=== PATIENT | female | born 1955 | race African-American/Black ===

== ENCOUNTER → 2019-12-31 | Outpatient (CLI) | payer OTHER | LOC: NUC 08:06 | PROVIDERS: ATTEND Neuromusculoskeletal Medicine & OMM | DX: R14.0 Abdominal distension (gaseous) (principal); R10.9 Unspecified abdominal pain ==

== ENCOUNTER → 2020-02-17 | Outpatient (CLI) | payer OTHER | LOC: ULTRA 07:26 | PROVIDERS: ATTEND Obstetrics & Gynecology | DX: K80.20 Calculus of gallbladder without cholecystitis without obstruction (principal); D25.9 Leiomyoma of uterus, unspecified; N85.8 Other specified noninflammatory disorders of uterus; K76.0 Fatty (change of) liver, not elsewhere classified ==

== ENCOUNTER → 2020-04-07 | Outpatient (CLI) | payer OTHER ==
[~2020-04-07] MED LIST: BENICAR40 MG PO; HYDROCHLOROTHIA25 M2 PO; KLOR-CON 10 ER10 MEQ PO; LIPITOR 20 MG T20 M1 PO; TOPROL XL50 MG PO
== END ==
LOC: LAB 08:51
PROVIDERS: ATTEND Surgery
DX: Z01.812 Encounter for preprocedural laboratory examination (principal); Z20.828 Contact with and (suspected) exposure to other viral communicable diseases

== ENCOUNTER 2020-04-12 10:02 | Observation (INO) | payer OTHER ==
[~2020-04-12] VITALS: Ht 149.9 cm; Wt 98.9 kg
--- NOTE | ~2020-04-12 | H ---
[facility] [place] [address] HISTORY AND PHYSICAL Name: DIMAS MCDANIEL Room #: PRE [facility] M.R.#: [id number] Admission: Attend Phys: Cricket Valdez MD Discharge: Date of : 57 Report #: [id number] THIS REPORT FOR: cc: Clint Veloz,Cricket Lim MD ~ CC: Cricket Veloz MD PREOPERATIVE DIAGNOSES: 1. Cholecystitis with cholelithiasis. 2. Right lower quadrant pain, possible adhesions. HISTORY OF PRESENT ILLNESS: The patient is a 64-year-old who was seen back in January for complaint of distress from being very gassy over the last couple of years. The patient also has bloating. She says that the bloating is mostly in the lower part of her abdomen. She has history of nausea, no vomiting. She has had loose stools more than usual. The patient does complain of pain in the right side of her back for about a year. She has some left shoulder pain. No right shoulder pain. The patient does have some right upper quadrant pain that comes and goes. Initially, her complaint to me was gas. The patient does have food intolerance to dairy product, vegetables and fruits. Issues with greasy fried fish and also eggs. The patient had a CT scan that was unremarkable. The patient was seen by a structural steel erector. I did do an ultrasound since she did not have one when I saw her and it did show multiple small gallstones. The patient did have PIPIDA scan with ejection fraction of 75%. She did have moderate abdominal pain with the CCK injection. No family history of gallbladder disease that she is aware of. The patient has seen a MANAGER ANALYTICAL and I spoke with Dr. Gloria Arteaga who thinks that her pain is probably from adhesions. She does have uterine fibroid. She has requested I look at the pelvis and possibly lyse the adhesions. PAST MEDICAL HISTORY: She has mild high blood pressure. The patient denies diabetes, denies heart disease, denies lung disease, denies liver disease, denies kidney disease, denies bleeding disorder, denies history of blood clot. MEDICATIONS: The patient is on blood pressure meds. ALLERGIES: She is allergic to PENICILLIN. FAMILY HISTORY: Sister with breast cancer. SOCIAL HISTORY: The patient works in [employer]. Does not smoke. Drinks one cup a week. 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 She has [facility] [address] [place] [address] HISTORY AND PHYSICAL Name: DIMAS MCDANIEL MAGALY Room #: [facility]..#: [id number] Admission: Attend Phys: Cricket Valdez MD Discharge: Date of : 57 Report #: [id number] weakness in her arm. No chest pain, shortness of breath or palpitation. PHYSICAL EXAMINATION: GENERAL: The patient is a well-nourished female in no acute distress. HEENT: Pupils react to light. Extraocular muscles are intact. Sclerae are nonicteric. Oropharynx is clear. NECK: Soft and supple, no masses. LUNGS: Clear to auscultation. HEART: Regular rate and rhythm. No murmur or gallop. ABDOMEN: Soft with no tenderness. She is moderately obese. No mass, guarding, rigidity, rebound, no ascites. EXTREMITIES: No cyanosis, clubbing or edema. NEUROLOGIC: The patient's motor exam and sensory exams are unremarkable. IMPRESSION AND PLAN: The patient with couple of years history of gas, bloating, some right upper quadrant abdominal pain also. The patient does have gallstone seen on ultrasound. The patient's symptoms are consistent with gallbladder disease. She is recommended to have her gallbladder removed. The patient wishes to proceed. Laparoscopic cholecystectomy was discussed in detail. I did speak with her MANAGER ANALYTICAL physician who recommends looking at her pelvis during the gallbladder surgery. Possibly lyse the adhesions. By: 23 39 Cricket Valdez MD /nt
--- NOTE | ~2020-04-12 | O ---
[facility] [place] [address] OPERATIVE REPORT Name: DIMAS MCDANIEL Room #: 441-P [facility]..#: [id number] Admission: 04/12/20 Attend Phys: Cricket Valdez MD Discharge: Date of : 57 Report #: [id number] THIS REPORT FOR: cc: Clint Veloz,Cricket Lim MD ~ CC: Cricket Veloz MD DATE OF SERVICE: 04/12/2020 PREOPERATIVE DIAGNOSES: 1. Cholecystitis with cholelithiasis. 2. Right lower abdominal pain, possible adhesions. POSTOPERATIVE DIAGNOSES: 1. Cholecystitis with cholesterolosis. 2. Right lower quadrant pain. No adhesion identified. PROCEDURES PERFORMED: 1. Laparoscopic cholecystectomy. 2. Diagnostic laparoscopy. 3. Examination of the pelvis, right lower quadrant. SURGEON: Cricket Valdez MD ANESTHESIA: General anesthesia. COMPLICATIONS: None. ESTIMATED BLOOD LOSS: 5 mL. PROCEDURE NOTE: With the patient under general anesthesia, the abdomen was prepped and draped in sterile fashion. Timeout was performed. A 0.25% Marcaine was used to anesthetize the skin. Small 2 cm curved incision was made infraumbilically. Fascia was identified. Fascia was grasped with hemostat. Fascia was then opened under visualization. Between clamps, 0 Vicryl suture placed on the fascia edges. Veress needle was then placed through the peritoneum. Abdominal cavity was insufflated with CO2. After creating pneumoperitoneum, 11 mm trocar was placed under visualization into pneumoperitoneum. The patient has had some right lower quadrant pain and Dr. Arteaga from INJECTION MACHINE OPERATOR thought this is probably related to her appendectomy and adhesions. She asked me to evaluate the right lower quadrant and look at the ovaries and tubes. The patient was placed in Trendelenburg position, the right side was tilted up. A 5 mm trocar was placed about 2 inches below the [address] [address] OPERATIVE REPORT Name: DIMAS MCDANIEL [facility] Room #: [address] [place] [address].#: [id number] Admission: 04/12/20 Attend Phys: Cricket Valdez MD Discharge: Date of : 57 Report #: [id number] umbilicus. Using this trocar and then a second 5 mm trocar placed below the umbilicus at level of the midline, the pelvis was examined. At the site of the appendectomy, there is no adhesion to the wall. The bowel is not adhesed. Terminal ileum was normal. The rest of the ileum that is seen is normal. The cecum was normal. The patient's tube and ovaries were normal and normal ovary. No evidence of any endometriosis. The patient did have a large right uterine fibroid, which is displacing the rest of the uterus to the left. The diagnostic laparoscopic evaluation of the pelvis and right lower quadrant was finished at this point. Attention was then placed to the gallbladder. A 5 mm trocar was placed in the lateral pelvis and then another 5 mm trocar was placed in right epigastrium. Fundus of the gallbladder was lifted cephalad. The gallbladder was fairly decompressed. A second trocar was placed in the proximal part of the gallbladder. There is some adhesion medially. This was fairly mild and was taken down easily. The peritoneum over the cystic duct was then dissected free. The cystic duct was isolated. The junction of the cystic duct to the gallbladder was visualized. A clip was placed here. Opening was made in the cystic duct for the cholangiogram. The cholangiogram catheter was placed. Under fluoroscopy, the common bile duct filled out well. No definite filling defects identified. Dye flowed readily in duodenum. The common duct also was normal size. The cholangiogram catheter was then removed. The proximal cystic duct was then clipped x 2 and divided. The cystic artery was identified adjacent to this area. This was isolated, clipped x 2 proximally and distally and then divided. Gallbladder was then freed from the liver bed without difficulty. The gallbladder once it was free, it was retrieved through the infraumbilical port. The gallbladder was opened off the field at the end of the case and I did not see any stone, but there was significant degree of cholesterolosis identified. Some of the cholesterol material may have been big enough that the ultrasound identified small stones. Irrigation was performed. Clips intact. Irrigation was aspirated. Trocars removed. CO2 was evacuated. Infraumbilical fascia defect was closed with [id number] 0 Vicryl x 2. Skin was closed with 5-0 PDS. Steri-Strips applied. Band-Aids applied. The patient tolerated the procedure well and was taken to recovery room. By: 29 2245 Cricket Valdez MD /kerry
[2020-04-12 11:42] VITALS: BP 150/87
[2020-04-12 11:53] LABS: CALCIUM 8.7 mg/dL (8.5-10.1); POTASSIUM 3.6 mmol/L (3.5-5.1)
--- NOTE | 2020-04-12 12:45 | EKG ---
[facility] [place] [address] ELECTROCARDIOGRAM REPORT Name: DIMAS MCDANIEL Room #: [address] [place] [address]..#: [id number] Admission: 04/12/20 Attend Phys: Cricket Valdez MD Discharge: Date of : 57 Report #: [id number] THIS REPORT FOR: cc: Clint Veloz Steven F. DO Lundgren, Craig H. MD [facility] THIS REPORT FOR: //name// [facility] Test Date: 2020-04-12 Test Time: 10:58:13 Pat Name: DIMAS MCDANIEL Department: Room: 150 Gender: F Desktop Support Associate: [place] : 1955 Requested By: Cricket Valdez Order Number: [id number] MD: Deep Husain Measurements Intervals [place] Rate: 61 P: 48 MS: 187 QRS: 7 QRSD: 98 T: 4 QT: 400 QTc: 403 Interpretive Statements Sinus rhythm Nonspecific T wave abnormalities No previous ECG available for comparison Electronically Signed On 04-12-2020 12:45:34 CDT by Deep Husain [email or web address] <ELECTRONICALLY SIGNED> By: Deep Husain MD, [facility] 04/12/20 1245 1058 1058 Deep Husain MD, [facility] /EPI
[2020-04-12 16:00] VITALS: BP 163/97
[2020-04-12 18:14] VITALS: BP 156/77
--- NOTE | 2020-04-12 18:40 | NUR ---
PATIENT ADMITTED FROM OR WITH LAPROSCOPIC CARSON, PATIENT HAS 4 BANDIADS TO ABDOMEN AREA. PATIENT VOMITED SOON SHE ARRIVED ON THE UNIT. ZOFRAN 4 MG IV GIVEN. PATIENT ON CLEAR LIQUIDS, ONLY ABLE TO TOLERATE ICE CHIPS. B/P ELEVATED POST OP AND WHEN SHE ARRIVED ON THE FLOOR. THIS RN PAGED DR MCKEON, NO RETUNR CALL, HE CAME WHEN I LEFT THE FLOOR FOR LUNCH. THIS RN PAGED DR MCKEON AGAIN ABOUT THE B/P, HE WAS UNAWARE OF HER HOME MEDS, STATED TO RESTART ALL HOME MEDS, AND ALSO INFORMED DR MCKEON OF PATIENT CONTINUE TO HAVE NAUSEA, ORDER FOR REGLAN IN COMPUTER, HE ASKED THIS RN TO ORDER COMPAZINE 10 MG IV Q6HRS/PRN. RIGHT AC IV IN PLACE, IV FLUIDS STARTED AT 80CC/HR. ADMISSION COMPLETED AND REPORT GIVEN TO MAXINE/MAXIMUS.
[2020-04-13 00:01] VITALS: BP 168/90
--- NOTE | 2020-04-13 02:22 | NUR ---
PT CARE ASSUMED WITH PT IN BED WATCHING TV.PT IS A/O X4.PT IS UP WITH X1 ASSIST TO BEDSIDE COMMODE.PT DENIED NAUSEA DURING SHIFT AND NO VOMITING.HOME MEDICATION STARTED.PT IS ON 3L OF O2 AND DOESNOT USE O2 AT HOME.PT HAD APPLE SAUCE WITH NO ISSUES.PT DIET IS ADVANCED TOLERATED.PT CALLS FOR HELP APPROPRIETELY.WILL CONTINUE TO MONITOR POC
[2020-04-13 09:30] VITALS: BP 147/81
--- NOTE | 2020-04-13 14:11 | NUR ---
PT IS A&OX4, VSS, AMBULATES WELL WITH SBA JUST FOR SUPPORT, INCISIONS ARE DRY AND INTACT. PT DIET IS ADVANCED TOLERATED. PT DENIES NAUSEA, AND PAIN IS CONTROLLED. WILL CONTINUE TO MONITOR.
[2020-04-13] MEDS ORDERED: LORCET 5-325 M1 EACH PO (14:22)
[2020-04-13 15:19] VITALS: BP 168/90
--- NOTE | 2020-04-13 16:26 | NUR ---
Pt dcing home today. No needs from cm other than a cab voucher as the pt's spouse is not able to come pick her up until late tonight. Voucher provided to facilitate dc.
--- NOTE | 2020-04-13 17:23 | NUR ---
I AGREE WITH NURSING ASSESSMENT AND NURSING NOTE DONE PONTRILLA/DRAW FRAME TENDER.
--- NOTE | 2020-04-14 15:07 | PATH ---
[facility] [address] [place] [address] PATHOLOGY RPT PROCEDURE Name: MARIBEL RODRIGUES MAGALY Room #: 441-P KADEEM Ashley#: [id number] Admission: 04/12/20 Date of : 57 Discharge: 04/13/20 Report #: [id number] Path Case #: [id number] [facility] Accession Number: [id number] . 01 Material submitted: . gallbladder - GALLBLADDER . 01 Clinical history: . CHOLECYSTITIS W/ CHOLELIATHIASIS . 02 Diagnosis: Gallbladder, cholecystectomy: - Mild chronic cholecystitis. - No calculi received with the specimen (specimen received previously opened). (IUV:police manager; 04/14/2020) MBR 04/14/2020 1106 Local . 02 Electronically signed: . Emily Miller MD, Pathologist NPI- [id number] . 01 Gross description: . The specimen is received in formalin labeled "Maribel Rodrigues, gallbladder" and consists of a previously opened yellow-green gallbladder measuring 7.0 x 3.3 x 0.9 cm. The margin is inked black. No calculi are identified within the gallbladder lumen or in the container. The mucosa is green-brown with an average wall thickness of 0.1 cm. No masses are identified. Senior Applications Engineer sections are submitted in A1. (SDY; 04/13/2020) SYU/SYU 04/13/2020 1126 Local . 02 Pathologist provided ICD-10: K81.1 . 02 CPT . 197851 Specimen Comment: A courtesy copy of this report has been sent to [phone], [phone] Specimen Comment: [id number] Specimen Comment: Report sent to / DR MCNULTY Performed at: [address] [id number] MD Gm Davey MD Phone: [phone] Performed at: [address] [address] PATHOLOGY RPT PROCEDURE Name: MARIBEL RODRIGUES MAGALY Room #: 441-P KADEEM Ashley#: [id number] Admission: 04/12/20 Date of : 57 Discharge: 04/13/20 Report #: [id number] Path Case #: [id number] [address] [place] [address] [place] [id number] MD Emily Miller MD Phone: [phone]
== END 2020-04-13 18:23 | disposition home or self-care (01) ==
LOC: OR 10:02 → TBA 10:03 → OR 11:23 → 4S 15:15 → OR 15:16 → 4S 15:16
PROVIDERS: ADMIT Surgery; ATTEND Surgery
DX: K80.10 Calculus of gallbladder with chronic cholecystitis without obstruction (principal); R14.0 Abdominal distension (gaseous); I10 Essential (primary) hypertension; Z79.899 Other long term (current) drug therapy
CPT/HCPCS: 50010; 50101; 50411; 50555; 50558; 51489; 52265; 53307; 53310; 55245; 55317; 56462; 56526; 62110; 62900; 70005

== ENCOUNTER → 2020-12-21 | Outpatient (CLI) | payer OTHER ==
[~2020-12-21] MED LIST changes: +LORCET 5-325 M1 EACH PO
== END ==
LOC: RAD 08:54
PROVIDERS: ATTEND Surgery Plastic and Reconstructive Surgery
DX: Z12.31 Encounter for screening mammogram for malignant neoplasm of breast (principal)

== ENCOUNTER 2020-12-30 13:38 | Emergency (ER) | payer OTHER ==
[~2020-12-30] VITALS: Ht 149.9 cm; Wt 95.3 kg
[2020-12-30] MEDS ORDERED: ULTRAM 50MG TAB50 MG PO (17:10)
[2020-12-30 17:31] VITALS: BP 154/70
[2021-01-03] MEDS ORDERED: VITAMIN D31250 MCG PO (11:50)
== END 2020-12-30 17:33 | disposition home or self-care (01) ==
LOC: ER 13:38
DX: M25.571 Pain in right ankle and joints of right foot (principal); I10 Essential (primary) hypertension; E78.00 Pure hypercholesterolemia, unspecified; J45.909 Unspecified asthma, uncomplicated; K21.9 Gastro-esophageal reflux disease without esophagitis; Z88.5 Allergy status to narcotic agent; Z88.0 Allergy status to penicillin; Z79.899 Other long term (current) drug therapy; Z90.49 Acquired absence of other specified parts of digestive tract; W10.8XXA Fall (on) (from) other stairs and steps, initial encounter; Y93.89 Activity, other specified; Y92.89 Other specified places as the place of occurrence of the external cause; Y99.9 Unspecified external cause status

== ENCOUNTER 2021-01-04 09:25 | Day surgery (SDC) | payer OTHER ==
[~2021-01-04] VITALS: Ht 149.9 cm; Wt 97.5 kg
[~2021-01-04 09:25] MED LIST changes: +ULTRAM 50MG TAB50 MG PO; +VITAMIN D31250 MCG PO
[2021-01-04] MEDS ORDERED: PERCOCET 7.5-31 EAC1 PO (12:28)
[2021-01-04 14:33] VITALS: BP 136/84
--- NOTE | 2021-01-05 08:23 | EKG ---
[address] [employer] [address] ELECTROCARDIOGRAM REPORT Name: DIMAS MCDANIEL MAGALY Room #: DEP [facility]#: [id number] Admission: 01/04/21 Attend Phys: Saurav Plasencia MD Discharge: 01/04/21 Date of : 57 Report #: [id number] [facility] Test Date: 2021-01-04 Test Time: 10:47:17 Pat Name: DIMAS MCDANIEL Department: Room: 150 6 Gender: F Broommaking Supervisor: ALLYSON : 1955 Requested By: Aleena Clarke Order Number: [id number] MD: Baldomero Dixon Measurements Intervals [place] Rate: 64 P: 46 TX: 175 QRS: 8 QRSD: 91 T: -1 QT: 393 QTc: 406 Interpretive Statements Sinus rhythm Abnormal R-wave progression, late transition Left ventricular hypertrophy Borderline T abnormalities, anterior leads Compared to ECG 04/12/2020 10:58:13 Left ventricular hypertrophy now present T-wave abnormality still present Electronically Signed On 01-05-2021 7:01:26 CDT by Baldomero Dixon [email or web address] <ELECTRONICALLY SIGNED> By: Baldomero Dixon MD, FAC 01/05/21 0701 1047 1047 Baldomero Dixon MD, [facility] /EPI
--- NOTE | 2021-01-06 18:29 | O ---
[facility] [place] [address] OPERATIVE REPORT Name: DIMAS MCDANIEL Room #: DEP [facility]..#: [id number] Admission: 01/04/21 Attend Phys: Saurav Plasencia MD Discharge: 01/04/21 Date of : 57 Report #: [id number] THIS REPORT FOR: cc: Clint Veloz,Saurav Garcia MD ~ DOC #: [id number] Saurav Plasencia MD DATE OF SERVICE: 01/04/2021 PREOPERATIVE DIAGNOSIS: Right fibula fracture. POSTOPERATIVE DIAGNOSIS: Right fibula fracture with syndesmotic disruption. PROCEDURE: 1. Right ankle open reduction and internal fixation of the fibula. 2. Right ankle open reduction and internal fixation of the syndesmosis. SURGEON: Saurav Plasencia MD AUTOMOBILE RADIO REPAIRER: None. ANESTHESIA: General. ESTIMATED BLOOD LOSS: Minimal. DRAINS: No drains. TOURNIQUET TIME: 45 minutes. DESCRIPTION OF PROCEDURE: The patient was brought to the operating room where she was placed under general anesthesia. Once under adequate general anesthesia, her right lower extremity was prepped and draped in a sterile manner. The extremity was elevated, exsanguinated, tourniquet placed to 300 mmHg. A 10 cm incision overlying the distal fibula was then made. This was dissected down through the soft tissue to the fracture site and the hematoma was evacuated from the fracture site. A reduction of the fracture was then achieved with bone reduction tenaculums. Provisional fixation with a single cortical lag screw was then achieved. Placement of a 10-hole 1/3 tubular plate was performed on the lateral fibula. Two screws filled distal to the fracture site and 4 screws proximal to the fracture site. Excellent fixation was achieved in this manner. However, there was instability noted in the syndesmosis with the fibula out to length. Therefore, fixation of the syndesmosis was achieved utilizing a bone reduction tenaculum with the ankle held in neutral alignment. A single 4.5 mm cannulated screw was placed across the syndesmosis through the fibular plate. Excellent fixation and alignment was achieved once complete. This was verified [address] [address] OPERATIVE REPORT Name: DIMAS MCDANIEL MAGALY Room #: DEP [facility]..#: [id number] Admission: 01/04/21 Attend Phys: Saurav Plasencia MD Discharge: 01/04/21 Date of : 57 Report #: [id number] under fluoroscopy. The wound was irrigated copiously and closed with 2-0 Vicryl in subcutaneous tissues and stephenie were used for the skin. The wounds were dressed with Xeroform, 4 x 4's, and a sterile soft compressive dressing with a short leg cast was placed. Tourniquet was let down at 45 minutes. Toes are pink and warm. Good capillary refill. There were no complications from the procedure. The patient tolerated the procedure well and was taken to recovery room without incident. MD DIVINA Buchanan/JACI <ELECTRONICALLY SIGNED> By: Saurav Plasencia MD 01/06/21 1829 1135 1158 Saurav Plasencia MD /nt
== END 2021-01-04 13:45 | disposition home or self-care (01) ==
LOC: OR 09:25 → TBA 09:26 → OR 10:11
PROVIDERS: ATTEND Orthopaedic Surgery Foot and Ankle Surgery
DX: S82.831A Other fracture of upper and lower end of right fibula, initial encounter for closed fracture (principal); S93.431A Sprain of tibiofibular ligament of right ankle, initial encounter; I10 Essential (primary) hypertension; J45.909 Unspecified asthma, uncomplicated; K21.9 Gastro-esophageal reflux disease without esophagitis; Z98.890 Other specified postprocedural states; Z79.899 Other long term (current) drug therapy; Z90.49 Acquired absence of other specified parts of digestive tract; Z90.710 Acquired absence of both cervix and uterus; Z88.0 Allergy status to penicillin; Z88.6 Allergy status to analgesic agent; X58.XXXA Exposure to other specified factors, initial encounter; Y93.89 Activity, other specified; Y92.89 Other specified places as the place of occurrence of the external cause; Y99.9 Unspecified external cause status
CPT/HCPCS: 50010; 50101; 50313; 50386; 50679; 51131; 51412; 56524; 56525; 56667; 57091; 57180; 62110; 62900; 64039; 64043; 70005